=== PATIENT | female | born 1995 | race Caucasian/White ===

== ENCOUNTER 2016-10-21 10:04 | Emergency (ER) | payer MEDICAID, OTHER ==
[~2016-10-21 10:04] MED LIST: IBUP600T26 PO; PRENTAB9 PO
[2016-10-21] MEDS ORDERED: METOCLOPRAMIDE INJ 10MG/2ML VIAL (J2765) As Ordered ONE (10:45)
--- NOTE | 2016-10-21 12:11 | EDDOCDS ---
Physician Documentation [facility] Name: Olya Scott Age: 21 yrs Sex: Female : 1995 Arrival Date: 10/21/2016 Time: 10:04 Bed I3 / M3 Private MD: Edi Elizalde MD Disposition: 10/21/16 11:36 Discharged to Home/Self Care. Impression: related conditions, unspecified, first trimester - nausea and vomiting. - Condition is Stable. - Discharge Instructions: First Trimester of . - Medication Reconciliation form. - Follow up: Rashaad Howard MD; When: Call to arrange an appointment; Reason: Recheck today's complaints, Continuance of care. - Problem is an ongoing problem. - Symptoms have improved. Historical: - Allergies: Levofloxacin; levothyroxine (edema); - Home Meds: 1. Vitamin Oral tab 1 tab once daily 2. Wellbutrin XL 150 mg Oral Tb24 1 tab once daily - PMHx: Hypothyroidism; - PSHx: none; - Social history: Smoking status: Patient states was never smoker of tobacco. No barriers to communication noted, The patient speaks fluent Algerian, Speaks appropriately for age. - Family history: Not pertinent. - : The pt / caregiver states he / she is not on anticoagulants. Home medication list is obtained from the patient. - Exposure Risk Screening:: None identified. 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 8 in. (172.72 cm); Pain 4/10; 11:53 BP 110 / 65; Pulse 78; Resp 18; Temp 99.3(TE); Pulse Ox 98% on R/A; Pain 0/10; dem1 10:08 Body Mass Index 26.15 (78.02 kg, 172.72 cm) elp MDM: 10:33 IV Saline Lock ordered. cc10 10:33 NS 0.9% 1000 ml IV at bolus once ordered. cc10 10:33 Metoclopramide 10 mg IV at 40 mg/hr once over 15 mins ordered. cc10 11:02 Financial registration complete. 11:55 [facility] Payment Agreement was scanned into [employer] and attached to record. lg Administered Medications: 10:51 Drug: NS 0.9% 1000 ml [sodium chloride 0.9 % intravenous solution] Route: IV; Rate: kr3 bolus; Site: right antecubital; 10:51 Drug: Metoclopramide 10 mg [metoclopramide 5 mg/mL injection solution] Route: IV; Rate: kr3 40 mg/hr; Infused Over: 15 mins; Site: right antecubital; 11:36 Follow up: Response: Nausea is decreased; IV Status: Completed infusion kr3 12:08 Follow up: IV Status: Completed infusion jefferson Signatures: Javon Small RN RN Zaki MartínezRN RN Tim Taylor, [place] Raj Murguia, PA-C PA-C cc10 Kisha Maria RN kr3 The chart was reviewed and I authenticate all verbal orders and agree with the evaluation and treatment provided.Attachments: 11:55 [facility] Payment Agreement lg MTDD
--- NOTE | 2016-10-21 12:11 | EDDOCDS ---
Nurse's Notes [facility] Name: Olya Scott Age: 21 yrs Sex: Female : 1995 Arrival Date: 10/21/2016 Time: 10:04 Bed I3 / M3 Private MD: Edi Elizalde MD Diagnosis: related conditions, unspecified, first trimester-nausea and vomiting Presentation: 10/21 10:13 Presenting complaint: Patient states: states 10 weeks IUP - has been vomiting daily. bcj states vomited 27 times since 2330 last night. feels dehydrated. + RUQ abd pain. denies vag bleeding vag discharge. feels dizzy. Adult Sepsis Screening: The patient does not have new or worsening altered mentation. Patient's respiratory rate is less than 22. Systolic blood pressure is greater than 100. Patient has a qSOFA score of 0- Negative Sepsis Screen. Suicide/Homicide risk assessment- the patient denies having any suicidal and/or homicidal ideations and does not present with any other emotional, behavioral or mental health complaints. Status: Patient is not a claims service representative or dependent. Transition of care: patient was not received from another setting of care. 10:13 Acuity: STEPHEN Level 3 bcj 10:13 Method Of Arrival: Walkin/Carried/Asstd bcj Triage Assessment: 10:16 General: Appears in no apparent distress, comfortable, Behavior is cooperative. Pain: bcj Location: right upper quadrant Pain currently is 4 out of 10 on a pain scale. HIV screening NA for this visit Offered previously. 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 Vitamin Oral tab 1 tab once daily 2. Wellbutrin XL 150 mg Oral Tb24 1 tab once daily - PMHx: Hypothyroidism; - PSHx: none; - Social history: Smoking status: Patient states was never smoker of tobacco. No barriers to communication noted, The patient speaks fluent Scottish, Speaks appropriately for age. - Family history: Not pertinent. - : The pt / caregiver states he / she is not on anticoagulants. Home medication list is obtained from the patient. - Exposure Risk Screening:: None identified. Screenin:49 Screening information is obtained from the patient. Fall risk:. Assistance ADL's: jefferson requires no assistance with activities of daily living. Abuse/DV Screen: The patient / caregiver reports he/she is: not in a situation that causes fear, pain or injury. Nutritional screening: No deficits noted. Advance Directives: Currently, there is no health care proxy. There is no active DNR order. There is no living will. There is no Power of Dude Wrangler. Advance directive information has not previously been placed in an [facility] medical record. home support is adequate. Assessment: 10:49 General: Appears in no apparent distress, skin warm and dry color satisfactory. Moist jmk pink oral mucosa. Indicates nausea . presently without vomiting. abdomen is soft and nondistended with bowel sounds present x 4.. GI: Abdomen is non- distended Bowel sounds present X 4 quads. Abd is soft and non tender X 4 quads. 11:36 Reassessment: Patient states feeling better. kr3 12:08 General: Appears nausea resolved, bolus infused. receptive to discharge.. k Vital Signs: 10:08 BP 102 / 67; Pulse 92; Resp 18; Temp 99.0(O); Pulse Ox 100% ; Weight 78.02 kg; Height 5 elp ft. 8 in. (172.72 cm); Pain 4/10; 11:53 BP 110 / 65; Pulse 78; Resp 18; Temp 99.3(TE); Pulse Ox 98% on R/A; Pain 0/10; dem1 10:08 Body Mass Index 26.15 (78.02 kg, 172.72 cm) [facility] Vitals: 10:08 Log In Time: October 21, 2016 at 10:05. [facility] ED Course: 10:08 Patient visited by Sofia Hoyt PCA. elp 10:08 Edi Elizalde is Private Physician. elp 10:08 Patient moved to Waiting elp 10:09 Patient visited by Sofia Hoyt PCA. elp 10:09 Patient moved to Pre RCE elp 10:15 Triage Initiated bcj 10:17 Patient visited by Javon Small RN. bcj 10:26 Patient moved to Triage 1 ct3 10:29 [facility] cc10 10:29 Nestor Viera MD is Attending Physician. cc10 10:29 Patient visited by Raj Murguia PA-C. cc10 10:29 Patient visited by Raj Murguia PA-C. cc10 10:36 Patient moved to I3 / M3 ct3 10:49 The patient / caregiver is instructed regarding the plan of care and ED course. jmk 10:49 Inserted saline lock: 20 gauge in right antecubital area. jmk 11:36 Patient visited by Kisha Maria RN. kr3 11:36 Rashaad Howard MD is Referral Physician. cc10 11:36 Patient has correct armband on for positive identification. Placed in gown. Bed in low kr3 position. Call light in reach. Side rails up X 1. 11:53 Patient visited by Mary Ruth. dem1 11:55 Patient name changed from Olya\S\Roselia\S\Scott\S\ to Olya\S\R\S\Scott. EDMS 11:55 [facility] Payment Agreement was scanned into [employer] and attached to record. lg 12:08 Discontinued lock intact, bleeding controlled, pressure dressing applied, No jmk redness/swelling at site. No procedures done that require assistance. Administered Medications: 10:51 Drug: NS 0.9% 1000 ml [sodium chloride 0.9 % intravenous solution] Route: IV; Rate: kr3 bolus; Site: right antecubital; 10:51 Drug: Metoclopramide 10 mg [metoclopramide 5 mg/mL injection solution] Route: IV; Rate: kr3 40 mg/hr; Infused Over: 15 mins; Site: right antecubital; 11:36 Follow up: Response: Nausea is decreased; IV Status: Completed infusion kr3 12:08 Follow up: IV Status: Completed infusion jmk Order Results: There are currently no results for this order. Outcome: 11:36 No special radiology studies were completed. kr3 11:36 Discharge ordered by Provider. cc10 12:08 Discharge Assessment: Patient awake, alert and oriented x 3. No cognitive and/or jmk functional deficits noted. Patient verbalized understanding of disposition instructions. patient administered narcotics - no. The following High Risk Discharge criteria are identified: None. Discharged to home ambulatory. Condition: good Condition: improved. Discharge instructions given to patient, Instructed on discharge instructions, follow up and referral plans. medication usage, Demonstrated understanding of instructions, medications, Pt was receptive of discharge instructions/ teaching. Property :Personal belongings accompany Pt. 12:10 Patient left the ED. jefferson Signatures: Dispatcher [employer] EDMS Javon Small, RN RN Zaki MartínezRN RN Tim Taylor, Peter Reg lg Kisha MariaRN RN kr3 Jennifer Whiting, LEAD JAVA J2EE DEVELOPER LEAD JAVA J2EE DEVELOPER ct3 Mary Ruth dem1 Sofia Hoyt, LEAD JAVA J2EE DEVELOPER LEAD JAVA J2EE DEVELOPER elp Raj Murguia, PA-C PA-C cc10 MTDD
--- NOTE | 2016-10-23 13:12 | EDDOCDS ---
Physician Documentation [facility] Name: Olya Scott Age: 21 yrs Sex: Female : 1995 Arrival Date: 10/21/2016 Time: 10:04 Bed I3 / M3 Private MD: Edi Elizalde MD Disposition: 10/21/16 11:36 Discharged to Home/Self Care. Impression: related conditions, unspecified, first trimester - nausea and vomiting. - Condition is Stable. - Discharge Instructions: First Trimester of . - Medication Reconciliation form. - Follow up: Rashaad Howard MD; When: Call to arrange an appointment; Reason: Recheck today's complaints, Continuance of care. - Problem is an ongoing problem. - Symptoms have improved. Historical: - Allergies: Levofloxacin; levothyroxine (edema); - Home Meds: 1. Vitamin Oral tab 1 tab once daily 2. Wellbutrin XL 150 mg Oral Tb24 1 tab once daily - PMHx: Hypothyroidism; - PSHx: none; - Social history: Smoking status: Patient states was never smoker of tobacco. No barriers to communication noted, The patient speaks fluent Georgian, Speaks appropriately for age. - Family history: Not pertinent. - : The pt / caregiver states he / she is not on anticoagulants. Home medication list is obtained from the patient. - Exposure Risk Screening:: None identified. 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 8 in. (172.72 cm); Pain 4/10; 11:53 BP 110 / 65; Pulse 78; Resp 18; Temp 99.3(TE); Pulse Ox 98% on R/A; Pain 0/10; dem1 10:08 Body Mass Index 26.15 (78.02 kg, 172.72 cm) elp MDM: 10:33 IV Saline Lock ordered. cc10 10:33 NS 0.9% 1000 ml IV at bolus once ordered. cc10 10:33 Metoclopramide 10 mg IV at 40 mg/hr once over 15 mins ordered. cc10 11:02 Financial registration complete. lg 11:55 [facility] Payment Agreement was scanned into [employer] and attached to record. lg 14:24 T-Sheet-- Draft Copy was scanned into [employer] and attached to record. gb Administered Medications: 10:51 Drug: NS 0.9% 1000 ml [sodium chloride 0.9 % intravenous solution] Route: IV; Rate: kr3 bolus; Site: right antecubital; 10:51 Drug: Metoclopramide 10 mg [metoclopramide 5 mg/mL injection solution] Route: IV; Rate: kr3 40 mg/hr; Infused Over: 15 mins; Site: right antecubital; 11:36 Follow up: Response: Nausea is decreased; IV Status: Completed infusion kr3 12:08 Follow up: IV Status: Completed infusion jefferson Signatures: Javon Small RN RN Zaki MartínezRN RN Regina Bland, Reg Reg gb Tim Mensah, Reg Reg lg Raj Murguia, PA-C PA-C cc10 Kisha Maria RN kr3 The chart was reviewed and I authenticate all verbal orders and agree with the evaluation and treatment provided.Attachments: 11:55 [facility] Payment Agreement lg 14:24 T-Sheet-- Draft Copy gb Chart Complete MTDD
--- NOTE | 2016-10-23 13:12 | EDDOCDS ---
Nurse's Notes [facility] Name: Olya Scott Age: 21 yrs Sex: Female : 1995 Arrival Date: 10/21/2016 Time: 10:04 Bed I3 / M3 Private MD: Edi Elizalde MD Diagnosis: related conditions, unspecified, first trimester-nausea and vomiting Presentation: 10/21 10:13 Presenting complaint: Patient states: states 10 weeks IUP - has been vomiting daily. bcj states vomited 27 times since 2330 last night. feels dehydrated. + RUQ abd pain. denies vag bleeding vag discharge. feels dizzy. Adult Sepsis Screening: The patient does not have new or worsening altered mentation. Patient's respiratory rate is less than 22. Systolic blood pressure is greater than 100. Patient has a qSOFA score of 0- Negative Sepsis Screen. Suicide/Homicide risk assessment- the patient denies having any suicidal and/or homicidal ideations and does not present with any other emotional, behavioral or mental health complaints. Status: Patient is not a food service associate or dependent. Transition of care: patient was not received from another setting of care. 10:13 Acuity: STEPHEN Level 3 bcj 10:13 Method Of Arrival: Walkin/Carried/Asstd bcj Triage Assessment: 10:16 General: Appears in no apparent distress, comfortable, Behavior is cooperative. Pain: bcj Location: right upper quadrant Pain currently is 4 out of 10 on a pain scale. HIV screening NA for this visit Offered previously. 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 Vitamin Oral tab 1 tab once daily 2. Wellbutrin XL 150 mg Oral Tb24 1 tab once daily - PMHx: Hypothyroidism; - PSHx: none; - Social history: Smoking status: Patient states was never smoker of tobacco. No barriers to communication noted, The patient speaks fluent Tajik, Speaks appropriately for age. - Family history: Not pertinent. - : The pt / caregiver states he / she is not on anticoagulants. Home medication list is obtained from the patient. - Exposure Risk Screening:: None identified. Screenin:49 Screening information is obtained from the patient. Fall risk:. Assistance ADL's: jefferson requires no assistance with activities of daily living. Abuse/DV Screen: The patient / caregiver reports he/she is: not in a situation that causes fear, pain or injury. Nutritional screening: No deficits noted. Advance Directives: Currently, there is no health care proxy. There is no active DNR order. There is no living will. There is no Power of Technology Applications Engineer. Advance directive information has not previously been placed in an [facility] medical record. home support is adequate. Assessment: 10:49 General: Appears in no apparent distress, skin warm and dry color satisfactory. Moist jmk pink oral mucosa. Indicates nausea . presently without vomiting. abdomen is soft and nondistended with bowel sounds present x 4.. GI: Abdomen is non- distended Bowel sounds present X 4 quads. Abd is soft and non tender X 4 quads. 11:36 Reassessment: Patient states feeling better. kr3 12:08 General: Appears nausea resolved, bolus infused. receptive to discharge.. k Vital Signs: 10:08 BP 102 / 67; Pulse 92; Resp 18; Temp 99.0(O); Pulse Ox 100% ; Weight 78.02 kg; Height 5 elp ft. 8 in. (172.72 cm); Pain 4/10; 11:53 BP 110 / 65; Pulse 78; Resp 18; Temp 99.3(TE); Pulse Ox 98% on R/A; Pain 0/10; dem1 10:08 Body Mass Index 26.15 (78.02 kg, 172.72 cm) [facility] Vitals: 10:08 Log In Time: October 21, 2016 at 10:05. [facility] ED Course: 10:08 Patient visited by Sofia Hoyt PCA. elp 10:08 Edi Elizalde is Private Physician. elp 10:08 Patient moved to Waiting elp 10:09 Patient visited by Sofia Hoyt PCA. elp 10:09 Patient moved to Pre RCE elp 10:15 Triage Initiated bcj 10:17 Patient visited by Javon Small RN. bcj 10:26 Patient moved to Triage 1 ct3 10:29 Raj [facility]urguia PA-C [facility]. cc10 10:29 Nestor iVera MD is Attending Physician. cc10 10:29 Patient visited by aRj Murguia PA-C. cc10 10:29 Patient visited by Raj Murguia PA-C. cc10 10:36 Patient moved to I3 / M3 ct3 10:49 The patient / caregiver is instructed regarding the plan of care and ED course. jmk 10:49 Inserted saline lock: 20 gauge in right antecubital area. jmk 11:36 Patient visited by Kisha Maria RN. kr3 11:36 Rashaad Howard MD is Referral Physician. cc10 11:36 Patient has correct armband on for positive identification. Placed in gown. Bed in low kr3 position. Call light in reach. Side rails up X 1. 11:53 Patient visited by Mary Ruth. dem1 11:55 Patient name changed from Olya\S\Roselia\S\Scott\S\ to Olya\S\R\S\Scott. EDMS 11:55 [facility] Payment Agreement was scanned into [employer] and attached to record. lg 12:08 Discontinued lock intact, bleeding controlled, pressure dressing applied, No jmk redness/swelling at site. No procedures done that require assistance. 14:24 T-Sheet-- Draft Copy was scanned into [employer] and attached to record. gb Administered Medications: 10:51 Drug: NS 0.9% 1000 ml [sodium chloride 0.9 % intravenous solution] Route: IV; Rate: kr3 bolus; Site: right antecubital; 10:51 Drug: Metoclopramide 10 mg [metoclopramide 5 mg/mL injection solution] Route: IV; Rate: kr3 40 mg/hr; Infused Over: 15 mins; Site: right antecubital; 11:36 Follow up: Response: Nausea is decreased; IV Status: Completed infusion kr3 12:08 Follow up: IV Status: Completed infusion jmk Order Results: There are currently no results for this order. Outcome: 11:36 No special radiology studies were completed. kr3 11:36 Discharge ordered by Provider. cc10 12:08 Discharge Assessment: Patient awake, alert and oriented x 3. No cognitive and/or jmk functional deficits noted. Patient verbalized understanding of disposition instructions. patient administered narcotics - no. The following High Risk Discharge criteria are identified: None. Discharged to home ambulatory. Condition: good Condition: improved. Discharge instructions given to patient, Instructed on discharge instructions, follow up and referral plans. medication usage, Demonstrated understanding of instructions, medications, Pt was receptive of discharge instructions/ teaching. Property :Personal belongings accompany Pt. 12:10 Patient left the ED. jefferson Signatures: Dispatcher [employer] EDMS Javon Small, RN RN Zaki Martínez,RN RN Regina Bland, Reg Reg gb Tim Mensah, Reg Reg lg Kisha Maria,RN RN kr3 Jennifer Whiting, GENERATOR REBUILDER GENERATOR REBUILDER ct3 Mary Ruth dem1 Sofia Hoyt, GENERATOR REBUILDER GENERATOR REBUILDER elp Raj Murguia, SLOAN-C PALilyC cc10 Chart Complete MTDChago
--- NOTE | 2016-10-23 13:12 | EDDOCDS ---
Physician Documentation [facility] Name: Olya Scott Age: 21 yrs Sex: Female : 1995 Arrival Date: 10/21/2016 Time: 10:04 Bed I3 / M3 Private MD: Edi Elizalde MD Disposition: 10/21/16 11:36 Discharged to Home/Self Care. Impression: related conditions, unspecified, first trimester - nausea and vomiting. - Condition is Stable. - Discharge Instructions: First Trimester of . - Medication Reconciliation form. - Follow up: Rashaad Howard MD; When: Call to arrange an appointment; Reason: Recheck today's complaints, Continuance of care. - Problem is an ongoing problem. - Symptoms have improved. Historical: - Allergies: Levofloxacin; levothyroxine (edema); - Home Meds: 1. Vitamin Oral tab 1 tab once daily 2. Wellbutrin XL 150 mg Oral Tb24 1 tab once daily - PMHx: Hypothyroidism; - PSHx: none; - Social history: Smoking status: Patient states was never smoker of tobacco. No barriers to communication noted, The patient speaks fluent Kenyan, Speaks appropriately for age. - Family history: Not pertinent. - : The pt / caregiver states he / she is not on anticoagulants. Home medication list is obtained from the patient. - Exposure Risk Screening:: None identified. 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 8 in. (172.72 cm); Pain 4/10; 11:53 BP 110 / 65; Pulse 78; Resp 18; Temp 99.3(TE); Pulse Ox 98% on R/A; Pain 0/10; dem1 10:08 Body Mass Index 26.15 (78.02 kg, 172.72 cm) elp MDM: 10:33 IV Saline Lock ordered. cc10 10:33 NS 0.9% 1000 ml IV at bolus once ordered. cc10 10:33 Metoclopramide 10 mg IV at 40 mg/hr once over 15 mins ordered. cc10 11:02 Financial registration complete. lg 11:55 [facility] Payment Agreement was scanned into [employer] and attached to record. lg 14:24 T-Sheet-- Draft Copy was scanned into [employer] and attached to record. gb Administered Medications: 10:51 Drug: NS 0.9% 1000 ml [sodium chloride 0.9 % intravenous solution] Route: IV; Rate: kr3 bolus; Site: right antecubital; 10:51 Drug: Metoclopramide 10 mg [metoclopramide 5 mg/mL injection solution] Route: IV; Rate: kr3 40 mg/hr; Infused Over: 15 mins; Site: right antecubital; 11:36 Follow up: Response: Nausea is decreased; IV Status: Completed infusion kr3 12:08 Follow up: IV Status: Completed infusion jefferson Signatures: Javon Small RN RN Zaki MartínezRN RN Regina Bland, Reg Reg gb Tim Mensah, Reg Reg lg Raj Murguia, PA-C PA-C cc10 Kisha Maria RN kr3 The chart was reviewed and I authenticate all verbal orders and agree with the evaluation and treatment provided.Attachments: 11:55 [facility] Payment Agreement lg 14:24 T-Sheet-- Draft Copy gb Chart Complete MTDD
== END 2016-10-21 12:10 | disposition home or self-care (01) ==
LOC: M ED 10:04
DX: O21.9 Vomiting of pregnancy, unspecified (principal); Z3A.10 10 weeks gestation of pregnancy; O99.281 Endocrine, nutritional and metabolic diseases complicating pregnancy, first trimester; E03.9 Hypothyroidism, unspecified; O99.341 Other mental disorders complicating pregnancy, first trimester; F99 Mental disorder, not otherwise specified; Z79.899 Other long term (current) drug therapy; Z88.1 Allergy status to other antibiotic agents; Z88.8 Allergy status to other drugs, medicaments and biological substances
CPT/HCPCS: 96365; 99283; J2765

== ENCOUNTER → 2017-01-04 | Outpatient (CLI) | payer OTHER ==
--- NOTE | 2017-01-04 13:58 | REP ---
OB ULTRASOUND: Real-time sonographic evaluation of the gravid uterus is performed. There is a single living intrauterine gestation with an estimated gestational age 20 weeks 4 days with EDC 05/20/2017. Today's measurements indicate appropriate growth. Biometry and Growth: BPD 51 mm = 21 weeks 4 days, 74th percentile HC 189 mm = 21 weeks 1 day, 66th percentile AC 155 mm = 20 weeks 5 days, 51st percentile FL 32 mm = 20 weeks 0 days, 35th percentile HC/AC ratio 1.22 within normal range. Estimated weight 356 grams, 42nd percentile. SEEN/GROSSLY UNREMARKABLE Lateral ventricles Yes Posterior fossa Yes Upper lip Yes Four-chamber heart Yes LVOT Yes RVOT Yes Stomach Yes Cord insertion Yes Three vessel cord Yes Kidneys Yes Bladder Yes Spine No Cervical length: Closed and measures 3.3 cm in length. heart rate: 153 beats per minute. position: Transverse. Placenta: Anterior and grade 0 with no previa or abruption. Amniotic fluid: Within normal limits. Signed by Laurent Guadalupe MD 01/04/2017 05:39 P
== END ==
LOC: M RAD 11:56
PROVIDERS: ATTEND Obstetrics & Gynecology
DX: Z34.82 Encounter for supervision of other normal pregnancy, second trimester (principal); Z3A.20 20 weeks gestation of pregnancy

== ENCOUNTER → 2017-01-11 | Outpatient (REF) | payer OTHER | LOC: M LAB REF 16:57 | PROVIDERS: ATTEND Obstetrics & Gynecology | DX: Z34.82 Encounter for supervision of other normal pregnancy, second trimester (principal) ==

== ENCOUNTER → 2017-01-19 | Outpatient (CLI) | payer OTHER ==
--- NOTE | 2017-01-20 03:31 | REP ---
Clinical: Anatomical evaluation. Comparison: 01/04/2017 . Findings: Examination demonstrates a single live intrauterine in cephalic presentation. motion is identified by technologist. Placenta is noted anteriorly and grade zero without evidence for placenta previa or abruption. Amniotic fluid volume is normal. Cervix measures 3.5 cm in length and appears closed. Gestational age by LMP 22 weeks 6 days with NOA 05/19/2017 . Gestational age by current measurements 23 weeks 5 day with NOA is 05/13/2017 . FHR equals 144 beats per minute. Estimated weight 599 grams ( 64th percentile). Anatomical assessment demonstrates normal structures including cranium, choroid plexus, cavum, cerebellum/posterior fossa, facial features, lungs, four-chamber heart/ventricular outflow tracts, diaphragm, stomach, cord insertion/three-vessel cord, kidneys/bladder, spine, and extremities. Impression: Single live intrauterine in cephalic presentation demonstrating appropriate interval growth. Anatomical assessment is complete and normal. Nuchal cord cannot be excluded. Signed by Casimiro Quiroz MD 01/20/2017 03:23 A
== END ==
LOC: M RAD 10:00
PROVIDERS: ATTEND Obstetrics & Gynecology
DX: Z34.82 Encounter for supervision of other normal pregnancy, second trimester (principal)

== ENCOUNTER → 2017-02-12 | Outpatient (CLI) | payer OTHER ==
[2017-02-12 11:03] LABS: MEAN CORPUSCULAR HEMOGLOBIN 30.9 pg (27.0-33.0); MEAN CORPUSCULAR HGB CONC 33.4 g/dl (32.0-36.5); MEAN CORPUSCULAR VOLUME 92.4 fl (80.0-96.0); RED CELL DISTRIBUTION WIDTH 13.2 % (11.5-14.5); WHITE BLOOD COUNT 8.6 K/mm3 (4.0-10.0)
== END ==
LOC: M LAB 09:37
PROVIDERS: ATTEND Obstetrics & Gynecology
DX: Z34.83 Encounter for supervision of other normal pregnancy, third trimester (principal)

== ENCOUNTER 2017-03-11 18:55 | Outpatient (CLI) | payer OTHER | END 2017-03-11 20:20 | disposition home or self-care (01) | LOC: M LDO 18:55 | PROVIDERS: ATTEND Advanced Practice Midwife | DX: O47.03 False labor before 37 completed weeks of gestation, third trimester (principal); Z3A.30 30 weeks gestation of pregnancy; O62.0 Primary inadequate contractions ==

== ENCOUNTER → 2017-04-19 | Outpatient (CLI) | payer OTHER ==
[~2017-04-19] MED LIST changes: +BUSP10TA PO; +COLA100C5 PO; +DIBU0.5O TOP; +MILKSUS PO; +MOTR200T44 PO; +PROC2.5C PR; +RANI1TAB6 PO; +TYLE325T5 PO
--- NOTE | 2017-04-19 12:51 | REP ---
Obstetric ultrasound for abnormal nonstress test: There is a single intrauterine gestation in a vertex presentation. The placenta is anterior. There is no placenta previa or abruptio. The placenta demonstrates grade 1 maturity. Subjectively the amniotic fluid volume is normal. The amniotic fluid index is 19.3 (7.8 - 24.9). heart rate is 141 beats per minute. Based on the first ultrasound during this gestation the gestational age is 35 weeks 4 days with an NOA of 05/20/2017. biophysical profile: Breathing 2 Movement 2 Tone 2 A FV 2 Total 05/09 Umbilical artery Doppler assessment: S/D ratio - 2.61 Resistive index - 0.62 Diastolic flow velocity - 18.5 cm/sec. These values are normal. Signed by Laurent Madera MD 04/19/2017 12:42 P
== END ==
LOC: M RAD 11:53
PROVIDERS: ATTEND Advanced Practice Midwife
DX: Z34.83 Encounter for supervision of other normal pregnancy, third trimester (principal); Z3A.35 35 weeks gestation of pregnancy

== ENCOUNTER → 2017-04-26 | Outpatient (REF) | payer OTHER | LOC: M LAB REF 13:01 | PROVIDERS: ATTEND Obstetrics & Gynecology | DX: Z34.83 Encounter for supervision of other normal pregnancy, third trimester (principal); Z3A.00 Weeks of gestation of pregnancy not specified ==

== ENCOUNTER 2017-05-16 14:46 | Inpatient (IN) | payer OTHER ==
[~2017-05-16] VITALS: Ht 172.7 cm; Wt 100.0 kg
[2017-05-16] VITALS (9 sets, daily range): BP systolic 108–130; BP diastolic 56–74
[~2017-05-16 14:46] MED LIST changes: -BUSP10TA PO; -COLA100C5 PO; -DIBU0.5O TOP; -MILKSUS PO; -MOTR200T44 PO; -PROC2.5C PR; -RANI1TAB6 PO; -TYLE325T5 PO
[2017-05-16] MEDS ORDERED: RANI1TAB6 PO (15:33)
[2017-05-16] MEDS ORDERED: BUSP10TA PO (15:33)
[2017-05-16] MEDS ORDERED: LR 1,000 ML IV SCH (16:30)
[2017-05-16] MEDS ORDERED: LACTATED RINGER'S 1000 ML IV STA (16:30)
--- NOTE | 2017-05-16 17:03 | HPE ---
DATE OF ADMISSION: 05/16/2017 CHIEF COMPLAINT: Elective induction of labor. HISTORY OF THE PRESENT ILLNESS: The patient is a 21-year-old 2, para 1-0-0-1 at 39 weeks 4 days gestation with an estimated delivery date of 05/19/2017, by last menstrual period of 08/13/2016, confirmed by first trimester ultrasound of 09/23/2016. She presents for elective induction of labor. The patient denies uterine contractions, leakage of fluid, bleeding or discharge. She is feeling the baby move and states that her last intercourse was last week. LABS: The patient's blood type is B+. She is GBS negative, HIV negative , Rubella immune, VDRL nonreactive. Gonorrhea and Chlamydia negative. Hepatitis B antigen negative, hepatitis C nonreactive. Diabetes screen was 120. Corwith showed low probability, male fetus. Prepregnancy weight was 162 pounds. Her blood pressures have been ranging from 110-136 systolic over 60-92 diastolic in the office. Obstetrical ultrasound from 01/04/2017 showed an anterior placenta, no abnormalities. PAST OBSTETRICAL HISTORY: In 2013, she delivered a male at 40 weeks 5 days gestation via normal spontaneous vaginal delivery that weighed 9 pounds; complicated by a two-vessel cord. PAST MEDICAL HISTORY: 1. depression. 2. History of human papillomavirus (HPV). 3. Abnormal Pap smears in 2011 and 2013, colposcopies were normal. MEDICATIONS: - ranitidine 150 mg twice a day - buspirone 5 mg daily - vitamins PAST SURGICAL HISTORY: None. ALLERGIES: LEVAQUIN (gives the patient hallucinations). SOCIAL HISTORY: The patient is legally , denies tobacco, alcohol or drug use. EXAM: VITAL SIGNS: Heart rate is 86, respiratory rate is 18, temperature is 98.7, blood pressure is 130/74. ABDOMEN: Gravid. SVE: (05/11/2017, done in office) 2-3 cm/50%/-3 station. FHR: 135 beats per minute, moderate variability, accelerations, no decelerations, category 1 tracing. TOCO: No contractions. ASSESSMENT AND PLAN: 1. This is a 21-year-old 2, para 1 at 39 weeks 4 days gestation, presenting for elective induction of labor. Admit to labor and delivery with routine labs and orders. 2. The patient is GBS negative, no antibiotics required. 3. Anticipate induction of labor with spontaneous vaginal delivery. My preceptor for this patient encounter was Dr. Jackson Gómez. The preceptor was physically present in the building during the encounter and was fully available. As needed, all aspects of the patient interview, examination, medical decision making process, and medical care plan development were reviewed and approved by the preceptor. The preceptor is aware and concurs with the plan as stated in the body of this note and will attest to such by his/her cosignature. MEE
[2017-05-16 17:34] LABS: MEAN CORPUSCULAR HEMOGLOBIN 28.2 pg (27.0-33.0); MEAN CORPUSCULAR HGB CONC 34.4 g/dl (32.0-36.5); MEAN CORPUSCULAR VOLUME 82.2 fl (80.0-96.0); RED CELL DISTRIBUTION WIDTH 15.5 % (11.5-14.5); WHITE BLOOD COUNT 8.9 K/mm3 (4.0-10.0)
[2017-05-16] MEDS ORDERED: OXYTOCIN 30 UNITS IN 0.9% NaCl 500ML IV BAG (J2590) As Ordered ONE (21:42)
[2017-05-16] MEDS ORDERED: OXYTOCIN DRIP 30 UNITS in APPROPRIATE DILUENT 1 EA IV SCH (21:45)
[2017-05-17] VITALS (57 sets, daily range): BP systolic 82–133; BP diastolic 48–82
[2017-05-17] MEDS ORDERED: FENTANYL 2MCG/ML ROPIVACAINE 0.2% IN 0.9% NACL 200ML IVBAG As Ordered ONE (02:47)
[2017-05-17] MEDS ORDERED: ePHEDrine SULFATE 25 MG/5 ML(5MG/ML) SYRINGE IV PRN (07:30)
[2017-05-17] MEDS ORDERED: ONDANSETRON 4MG/2ML VIAL (J2405) IV PRN (07:30)
[2017-05-17] MEDS ORDERED: NALOXONE INJ 0.4 MG/1 ML VIAL (J2310) IV PRN (07:30)
[2017-05-17] MEDS ORDERED: REFRIGERATOR IV KEYS XX PRN (07:30)
[2017-05-17] MEDS ORDERED: diphenhydrAMINE INJ 50MG/ML VIAL (J1200) IV PRN (07:30)
[2017-05-17] MEDS ORDERED: LACTATED RINGER'S 1000 ML IV PRN (07:30)
[2017-05-17] MEDS ORDERED: EPIDURAL COMMENT XX SCH (07:30)
[2017-05-17] MEDS ORDERED: FENTANYL/ROPIVACAINE/NACL BAG 200 ML EPIDURAL SCH (07:30)
[2017-05-17] MEDS ORDERED: EPIDURAL/PCA KEYS XX PRN (07:30)
[2017-05-17] MEDS ORDERED: OXYTOCIN DRIP 30 UNITS in APPROPRIATE DILUENT 1 EA IV SCH (14:36)
[2017-05-17] MEDS ORDERED: MEASLES,MUMPS,RUBELLA VACCINE INJ (MMR-II) (90707) SC SCH (14:45)
[2017-05-17] MEDS ORDERED: IBUPROFEN 800 MG TAB PO PRN (14:45)
[2017-05-17] MEDS ORDERED: RHOGAM 300 MCG (1500 IU) INJ (J2790) IM SCH (14:45)
[2017-05-17] MEDS ORDERED: DOCUSATE SODIUM 100 MG CAP PO PRN (14:45)
[2017-05-17] MEDS ORDERED: MOM 30ML SUSPENSION UDC PO PRN (14:45)
[2017-05-17] MEDS ORDERED: ACETAMINOPHEN 500 MG TAB PO PRN (14:45)
[2017-05-17] MEDS ORDERED: ANUSOL HC CREAM 30GM TOP PRN (14:45)
[2017-05-17] MEDS ORDERED: DIBUCAINE 1% OINTMENT 30GM TOP PRN (14:45)
[2017-05-17] MEDS ORDERED: METHYLERGONOVINE MALEATE 0.2 MG TAB PO PRN (14:45)
[2017-05-18 06:40] VITALS: BP 120/64
[2017-05-18] MEDS ORDERED: PRENATAL VITAMINS CHEWABLE TABLET PO SCH (09:00)
--- NOTE | 2017-05-18 13:16 | DN ---
DATE: 05/17/2017 TIME OF : 1413 hours. GENDER: Male. SCORE: 9 and 9. WEIGHT: 8 pounds 9 ounces or 3086 grams. ANESTHESIA: Epidural. LACERATIONS: None. ESTIMATED BLOOD LOSS: 300 mL. COUNTS: 5 laparotomy sponges accounted for prior to and after delivery. DELIVERY NOTE: On 05/17/2017, at 1413 hours, Ms. Scott, a 21-year-old, 2, now para 2, had a spontaneous vaginal delivery of a liveborn male infant, score 9 and 9. Weight was 8 pounds 9 ounces or 3086 grams. Head was delivered occiput anterior (OA) over intact peritoneum, followed by delivery of anterior and posterior shoulders and corpus. Cord was clamped times two. It was cut by the father of the baby under my direction. Infant was then handed to mom with a good cry. Cord blood was obtained. Placenta was drained and delivered grossly intact. A premixed bag of 500 mL of normal saline with 30 units of Pitocin was bolused along with uterine massage until uterus was firm. On inspection, the cervix, vagina and perineum was grossly intact. Mom and baby recovered in stable condition.
[2017-05-18] MEDS ORDERED: DIBU0.5O TOP (17:17)
[2017-05-18] MEDS ORDERED: TYLE325T5 PO (17:17)
[2017-05-18] MEDS ORDERED: MILKSUS PO (17:17)
[2017-05-18] MEDS ORDERED: MOTR200T44 PO (17:17)
[2017-05-18] MEDS ORDERED: PROC2.5C PR (17:17)
[2017-05-18] MEDS ORDERED: COLA100C5 PO (17:17)
== END 2017-05-18 18:00 | disposition home or self-care (01) | DRG 560 ==
LOC: M LDI 14:46 → M OBS 05-17 17:53
PROVIDERS: ADMIT Obstetrics & Gynecology; ATTEND Obstetrics & Gynecology
PROC: 10E0XZZ Delivery of Products of Conception, External Approach (ICD-10-PCS; principal; 2017-05-17)
DX: O80 Encounter for full-term uncomplicated delivery (principal); Z37.0 Single live birth; Z3A.39 39 weeks gestation of pregnancy

== ENCOUNTER 2017-08-28 11:46 | Emergency (ER) | payer MEDICAID, OTHER ==
[~2017-08-28] VITALS: Ht 172.7 cm; Wt 81.8 kg
[~2017-08-28 11:46] MED LIST changes: +BUSP10TA PO; +COLA100C5 PO; +DIBU0.5O TOP; +MILKSUS PO; +MOTR200T44 PO; +PROC2.5C PR; +RANI1TAB6 PO; +TYLE325T5 PO
[2017-08-28] MEDS ORDERED: ATIV1TAB7 PO (12:18)
[2017-08-28] MEDS ORDERED: EFFE75CA75 PO (12:18)
[2017-08-28] MEDS ORDERED: FLON1SPR (14:43)
[2017-08-28 14:54] VITALS: BP 119/79
== END 2017-08-28 14:56 | disposition home or self-care (01) ==
LOC: M ED 11:46
DX: J01.90 Acute sinusitis, unspecified (principal); T43.215A Adverse effect of selective serotonin and norepinephrine reuptake inhibitors, initial encounter; Y92.9 Unspecified place or not applicable; Y93.9 Activity, unspecified; Z79.899 Other long term (current) drug therapy; Z88.8 Allergy status to other drugs, medicaments and biological substances

== ENCOUNTER → 2017-09-05 | Outpatient (REF) | payer MEDICAID, OTHER, SELFPAY ==
[~2017-09-05] MED LIST changes: +ATIV1TAB7 PO; +EFFE75CA75 PO; +FLON1SPR
[2017-09-05 13:56] LABS: BASO % 0.5 % (0.0-1.0); EOS # 0.2 10^3/uL (0.0-0.50); EOS % 2.8 % (0.0-3.0); IMMATURE GRANULOCYTE % 0.2 % (0-0); LYMPH % 23.7 % (24.0-44.0); MEAN CORPUSCULAR HEMOGLOBIN 27.7 pg (27.0-33.0); MEAN CORPUSCULAR HGB CONC 32.6 g/dl (32.0-36.5); MONO # 0.8 10^3/uL (0.0-0.8); MONO % 9.3 % (0.0-5.0); NEUTROPHILS # 5.4 10^3/uL (1.8-7.7); NEUTROPHILS % 63.5 % (36.0-66.0); PLATELET COUNT, AUTOMATED 329 10^3/uL (150-450); WHITE BLOOD COUNT 8.5 10^3/uL (4.0-10.0)
[2017-09-05 14:14] LABS: ALBUMIN 3.7 GM/DL (3.2-5.2); ALKALINE PHOSPHATASE 126 U/L (45-117); ALT/SGPT 70 U/L (12-78); ANION GAP 10 MEQ/L (8-16); AST/SGOT 32 U/L (7-37); BILIRUBIN,TOTAL 0.3 MG/DL (0.2-1.0); BLOOD UREA NITROGEN 10 MG/DL (7-18); CALCIUM LEVEL 8.9 MG/DL (8.5-10.1); CARBON DIOXIDE LEVEL 26 MEQ/L (21-32); CHLORIDE LEVEL 104 MEQ/L (98-107); CREATININE FOR GFR 0.78 MG/DL (0.55-1.02); GLOMERULAR FILTRATION RATE > 60.0 (>60); GLUCOSE, FASTING 93 MG/DL (70-105); POTASSIUM SERUM 3.7 MEQ/L (3.5-5.1); SODIUM LEVEL 140 MEQ/L (136-145); TOTAL PROTEIN 7.4 GM/DL (6.4-8.2)
[2017-09-05 14:32] LABS: ERYTHROCYTE SEDIMENTATION RATE 38 mm/hr (0-20)
== END ==
LOC: M LABDRAW1 10:42
PROVIDERS: ATTEND Psychiatry & Neurology Neurology
DX: R05 Cough (principal)

== ENCOUNTER 2017-10-10 09:49 | Emergency (ER) | payer OTHER, SELFPAY, MEDICAID ==
[2017-10-10 11:30] LABS: ANION GAP 6 MEQ/L (8-16); BLOOD UREA NITROGEN 14 MG/DL (7-18); CALCIUM LEVEL 8.9 MG/DL (8.5-10.1); CARBON DIOXIDE LEVEL 28 MEQ/L (21-32); CHLORIDE LEVEL 107 MEQ/L (98-107); CREATININE FOR GFR 0.66 MG/DL (0.55-1.02); GLOMERULAR FILTRATION RATE > 60.0 (>60); GLUCOSE, FASTING 85 MG/DL (70-105); POTASSIUM SERUM 4.1 MEQ/L (3.5-5.1); SODIUM LEVEL 141 MEQ/L (136-145)
[2017-10-10] MEDS ORDERED: ISOVUE-370 76% 100ML VIAL (Q9967) As Ordered (11:33)
== END 2017-10-10 12:34 | disposition home or self-care (01) ==
LOC: M ED 09:49
DX: R07.89 Other chest pain (principal); R91.1 Solitary pulmonary nodule; F53 Mental and behavioral disorders associated with the puerperium, not elsewhere classified; Z79.899 Other long term (current) drug therapy; Z88.1 Allergy status to other antibiotic agents; Z82.49 Family history of ischemic heart disease and other diseases of the circulatory system
CPT/HCPCS: Q9967

== ENCOUNTER → 2017-10-13 | Outpatient (REF) | payer OTHER | LOC: M LAB REF 18:11 | DX: Z12.4 Encounter for screening for malignant neoplasm of cervix (principal) | CPT/HCPCS: G0123 ==

== ENCOUNTER → 2017-11-08 | Outpatient (REF) | payer OTHER ==
[2017-11-08 14:47] LABS: INFLUENZA A AMPLIFICATION NEGATIVE (NEGATIVE); INFLUENZA B AMPLIFICATION NEGATIVE (NEGATIVE); RSV AMPLIFICATION NEGATIVE (NEGATIVE)
[2017-11-08 15:30] LABS: APPEARANCE, URINE HAZY (CLEAR); BACTERIA, URINE AUTO NEGATIVE (NEGATIVE); BILIRUBIN, URINE AUTO NEGATIVE (NEGATIVE); BLOOD, URINE BLOOD NEGATIVE (NEGATIVE); COLOR, URINE YELLOW (YELLOW); GLUCOSE, URINE (UA) AUTO NEGATIVE (NEGATIVE); KETONE, URINE AUTO NEGATIVE (NEGATIVE); LEUKOCYTE ESTERASE, URINE AUTO TRACE (NEGATIVE); NITRITE, URINE AUTO NEGATIVE (NEGATIVE); PROTEIN, URINE AUTO NEGATIVE (NEGATIVE); RBC, URINE AUTO 1 /HPF (0-3); SPECIFIC GRAVITY URINE AUTO 1.023 (1.002-1.035); SQUAMOUS EPITHELIAL CELL UR AU 4 /HPF (0-6); UROBILINOGEN, URINE AUTO 0.2 mg/dL (0.0-2.0); WBC, URINE AUTO 10 /HPF (0-3)
== END ==
LOC: M LAB REF 13:30
DX: J02.9 Acute pharyngitis, unspecified (principal); J11.1 Influenza due to unidentified influenza virus with other respiratory manifestations

== ENCOUNTER → 2017-12-07 | Outpatient (CLI) | payer OTHER ==
[2017-12-07 14:15] LABS: BASO # 0.1 10^3/uL (0.0-0.2); BASO % 0.5 % (0.0-1.0); EOS # 0.3 10^3/uL (0.0-0.50); EOS % 2.9 % (0.0-3.0); HEMATOCRIT 42.3 % (36.0-47.0); HEMOGLOBIN 14.1 g/dl (12.0-16.0); IMMATURE GRANULOCYTE % 0.4 % (0-3.0); LYMPH # 2.6 10^3/uL (1.5-6.5); LYMPH % 25.6 % (24.0-44.0); MEAN CORPUSCULAR HEMOGLOBIN 28.1 pg (27.0-33.0); MEAN CORPUSCULAR HGB CONC 33.3 g/dl (32.0-36.5); MEAN CORPUSCULAR VOLUME 84.4 fl (80.0-96.0); MONO # 0.6 10^3/uL (0.0-0.8); MONO % 5.7 % (0.0-5.0); NEUTROPHILS # 6.7 10^3/uL (1.8-7.7); NEUTROPHILS % 64.9 % (36.0-66.0); PLATELET COUNT, AUTOMATED 371 10^3/uL (150-450); RED BLOOD COUNT 5.01 10^6/uL (4.00-5.40); RED CELL DISTRIBUTION WIDTH 13.3 % (11.5-14.5); WHITE BLOOD COUNT 10.3 10^3/uL (4.0-10.0)
[2017-12-07 14:54] LABS: ALBUMIN 3.9 GM/DL (3.2-5.2); ALKALINE PHOSPHATASE 157 U/L (45-117); ALT/SGPT 32 U/L (12-78); AMYLASE 50 U/L (25-115); ANION GAP 10 MEQ/L (8-16); AST/SGOT 23 U/L (7-37); BILIRUBIN,TOTAL 0.3 MG/DL (0.2-1.0); BLOOD UREA NITROGEN 15 MG/DL (7-18); CALCIUM LEVEL 9.4 MG/DL (8.5-10.1); CARBON DIOXIDE LEVEL 25 MEQ/L (21-32); CHLORIDE LEVEL 106 MEQ/L (98-107); CREATININE FOR GFR 0.81 MG/DL (0.55-1.30); FREE T4 0.75 NG/DL (0.76-1.46); GLOMERULAR FILTRATION RATE > 60.0 (>60); GLUCOSE, FASTING 85 MG/DL (70-100); LIPASE 211 U/L (73-393); POTASSIUM SERUM 4.7 MEQ/L (3.5-5.1); SODIUM LEVEL 141 MEQ/L (136-145); TOTAL PROTEIN 7.8 GM/DL (6.4-8.2)
[2017-12-08 12:13] LABS: THYROID PEROXIDASE ANTIBODY < 28.0 U/ML (<60.0)
[2017-12-08 12:14] LABS: THYROGLOBULIN ANTIBODY 58.7 U/ML (<60.0)
== END ==
LOC: M SMT 10:42
DX: R63.5 Abnormal weight gain (principal); R10.11 Right upper quadrant pain

== ENCOUNTER → 2017-12-07 | Outpatient (REF) | payer OTHER | LOC: M LAB REF 16:59 | DX: R30.0 Dysuria (principal) | CPT/HCPCS: 87086 ==

== ENCOUNTER → 2017-12-20 | Outpatient (CLI) | payer OTHER ==
[2017-12-20 14:24] LABS: THYROGLOBULIN ANTIBODY 60.1 U/ML (<60.0); THYROID PEROXIDASE ANTIBODY < 28.0 U/ML (<60.0)
[2017-12-20 14:26] LABS: FREE T3 2.9 PG/ML (2.2-4.0)
== END ==
LOC: M WUC 11:24
DX: F43.10 Post-traumatic stress disorder, unspecified (principal); E55.9 Vitamin D deficiency, unspecified

== ENCOUNTER → 2018-01-18 | Outpatient (CLI) | payer OTHER ==
[2018-01-18 09:40] LABS: FREE T3 2.8 PG/ML (2.2-4.0); FREE T4 0.74 NG/DL (0.76-1.46)
[2018-01-19 08:52] LABS: CORTISOL AM 19.4 UG/DL (4.3-22.4)
[2018-01-19 08:54] LABS: TOTAL 25(OH) VITAMIN D 24.5 NG/ML (30.0-100.0)
[2018-01-19 10:01] LABS: PROGESTERONE 0.4 NG/ML
[2018-01-19 10:01] LABS: LUTEINIZING HORMONE 9.8 mIU/mL
[2018-01-19 10:02] LABS: FOLLICLE STIMULATING HORMONE 5.7 mIU/mL
[2018-01-19 14:19] LABS: INSULIN LEVEL 166.2 uIU/mL (2.6-24.9)
[2018-01-22 14:12] LABS: DEHYDROEPIANDROSTERONE UNCONJ 500 ng/dL (31-701); ESTROGENS TOTAL 108 pg/mL (.); TESTOSTERONE FREE (DIRECT) 3.6 pg/mL (0.0-4.2)
== END ==
LOC: M WUC 08:07
DX: F43.10 Post-traumatic stress disorder, unspecified (principal); E66.9 Obesity, unspecified; L70.9 Acne, unspecified; L90.6 Striae atrophicae; E55.9 Vitamin D deficiency, unspecified; R53.83 Other fatigue
CPT/HCPCS: 83001

== ENCOUNTER → 2018-01-24 | Outpatient (CLI) | payer OTHER ==
[2018-01-24 12:00] LABS: CORTISOL AM 0.7 UG/DL (4.3-22.4)
== END ==
LOC: M WUC 08:14
DX: R53.83 Other fatigue (principal); L90.6 Striae atrophicae; L70.9 Acne, unspecified; E66.9 Obesity, unspecified
CPT/HCPCS: 82533

== ENCOUNTER → 2018-02-07 | Outpatient (CLI) | payer OTHER ==
[2018-02-07 10:48] LABS: HEMATOCRIT 39.9 % (36.0-47.0)
[2018-02-07 11:26] LABS: VITAMIN B12 LEVEL 715 PG/ML (247-911)
[2018-02-07 11:26] LABS: RHEUMATOID FACTOR QUANT < 10.0 IU/ML (<15.0)
[2018-02-07 11:31] LABS: FREE T3 3.5 PG/ML (2.2-4.0); FREE T4 0.79 NG/DL (0.76-1.46)
[2018-02-07 11:31] LABS: CALCIUM LEVEL 8.9 MG/DL (8.5-10.1)
[2018-02-07 12:57] LABS: ESTIMATED AVERAGE GLUCOSE 97 MG/DL (60-110)
[2018-02-09 10:52] LABS: PRETREATED FOLATE FOR RBCFOL 10.2 NG/ML; RBC FOLATE 536.8 NG/ML (280-791)
[2018-02-14 00:07] LABS: EBV AB TO NUCLEAR ANTIGEN 33.3 U/mL (0.0-17.9); EBV VIRAL CAPSID AG IgG 53.8 U/mL (0.0-17.9); EBV VIRAL CAPSID AG IgM <36.0 U/mL (0.0-35.9); INSULIN LEVEL 87.2 uIU/mL (2.6-24.9); Lyme Disease IgG/IgM Antibodie <0.91 ISR (0.00-0.90); Lyme Disease IgM Ab Quantitati <0.80 index (0.00-0.79); MAGNESIUM RBC LEVEL 5.2 mg/dL (4.2-6.8); METHYLMALONIC ACID 165 nmol/L (0-378)
== END ==
LOC: M WUC 09:00
DX: F43.10 Post-traumatic stress disorder, unspecified (principal); E66.9 Obesity, unspecified; L70.9 Acne, unspecified; E55.9 Vitamin D deficiency, unspecified
CPT/HCPCS: 82310

== ENCOUNTER → 2018-03-26 | Outpatient (CLI) | payer OTHER | LOC: M SLEEP HO 14:27 | DX: G47.33 Obstructive sleep apnea (adult) (pediatric) (principal) | CPT/HCPCS: G0399 ==

== ENCOUNTER → 2018-03-28 | Outpatient (CLI) | payer OTHER ==
[~2018-03-28] MED LIST changes: -ATIV1TAB7 PO; -BUSP10TA PO; -COLA100C5 PO; -DIBU0.5O TOP; -EFFE75CA75 PO; -FLON1SPR; +GASTROGRAFIN SOLUTION 30ML (Q9963) As Ordered; -IBUP600T26 PO; +ISOVUE-370 76% 100ML VIAL (Q9967) As Ordered; -MILKSUS PO; -MOTR200T44 PO; -PRENTAB9 PO; -PROC2.5C PR; -RANI1TAB6 PO; -TYLE325T5 PO
== END ==
LOC: M RAD 16:01
DX: R91.1 Solitary pulmonary nodule (principal); E16.1 Other hypoglycemia
CPT/HCPCS: Q9963

== ENCOUNTER → 2018-04-18 | Outpatient (REF) | payer OTHER | LOC: M LAB REF 17:19 | DX: R30.0 Dysuria (principal) ==

== ENCOUNTER → 2018-07-09 | Outpatient (CLI) | payer OTHER | LOC: M SLEEP 19:52 | DX: G47.33 Obstructive sleep apnea (adult) (pediatric) (principal) | CPT/HCPCS: 95810 ==

== ENCOUNTER → 2018-07-19 | Outpatient (CLI) | payer OTHER ==
[2018-07-19 11:18] LABS: HCG, SERUM QUANTITATIVE 282 MIU/ML
== END ==
LOC: M LAB 10:03
DX: Z36.89 Encounter for other specified antenatal screening (principal); Z3A.00 Weeks of gestation of pregnancy not specified
CPT/HCPCS: 84702

== ENCOUNTER → 2018-07-21 | Outpatient (CLI) | payer OTHER ==
[2018-07-21 12:40] LABS: HCG, SERUM QUANTITATIVE 783 MIU/ML
== END ==
LOC: M LAB 11:24
DX: Z32.01 Encounter for pregnancy test, result positive (principal); Z3A.00 Weeks of gestation of pregnancy not specified
CPT/HCPCS: 84702

== ENCOUNTER → 2018-07-27 | Outpatient (CLI) | payer OTHER | LOC: M RAD 07:37 | DX: Z34.81 Encounter for supervision of other normal pregnancy, first trimester (principal) ==

== ENCOUNTER → 2018-08-03 | Outpatient (CLI) | payer OTHER | LOC: M SMT 09:40 | DX: O9A.211 Injury, poisoning and certain other consequences of external causes complicating pregnancy, first trimester (principal); T83.32XA Displacement of intrauterine contraceptive device, initial encounter; O34.81 Maternal care for other abnormalities of pelvic organs, first trimester; N83.201 Unspecified ovarian cyst, right side; Z3A.01 Less than 8 weeks gestation of pregnancy; Y83.1 Surgical operation with implant of artificial internal device as the cause of abnormal reaction of the patient, or of later complication, without mention of misadventure at the time of the procedure | CPT/HCPCS: 76817 ==

== ENCOUNTER → 2018-09-03 | Outpatient (CLI) | payer OTHER ==
[2018-09-03 14:53] LABS: FREE THYROXINE INDEX 2.9 % (1.3-4.8); HCG, SERUM QUANTITATIVE 46748 MIU/ML; RUBELLA IgG QUALITATIVE IMMUNE (IMMUNE); T UPTAKE 23 % (30-39); THYROXINE (T4) 12.5 UG/DL (4.5-12.0)
[2018-09-03 14:53] LABS: HEPATITIS B SURFACE ANTIGEN NEGATIVE (NEGATIVE)
[2018-09-03 17:15] LABS: HEMATOCRIT 39.3 % (36.0-47.0); HEMOGLOBIN 12.8 g/dl (12.0-15.5); MEAN CORPUSCULAR HEMOGLOBIN 27.2 pg (27.0-33.0); MEAN CORPUSCULAR HGB CONC 32.6 g/dl (32.0-36.5); MEAN CORPUSCULAR VOLUME 83.6 fl (80.0-96.0); PLATELET COUNT, AUTOMATED 333 10^3/uL (150-450); RED CELL DISTRIBUTION WIDTH 14.1 % (11.5-14.5)
== END ==
LOC: M WUC 11:12
DX: Z34.80 Encounter for supervision of other normal pregnancy, unspecified trimester (principal)
CPT/HCPCS: 84443

== ENCOUNTER → 2018-09-09 | Outpatient (CLI) | payer OTHER ==
[2018-09-09 18:08] LABS: FREE T3 3.4 PG/ML (2.2-4.0)
[2018-09-10 10:35] LABS: TOTAL 25(OH) VITAMIN D 14.1 NG/ML (30.0-100.0)
== END ==
LOC: M WUC 14:05
DX: F43.10 Post-traumatic stress disorder, unspecified (principal); E56.9 Vitamin deficiency, unspecified; E03.9 Hypothyroidism, unspecified
CPT/HCPCS: 82306

== ENCOUNTER → 2018-10-11 | Outpatient (CLI) | payer OTHER ==
[~2018-10-11] MED LIST changes: +ATIV1TAB7 PO; +BUSP10TA PO; +COLA100C5 PO; +DIBU0.5O TOP; +EFFE75CA2 PO; +FLON1SPR; -GASTROGRAFIN SOLUTION 30ML (Q9963) As Ordered; +IBUP600T26 PO; -ISOVUE-370 76% 100ML VIAL (Q9967) As Ordered; +MILK120011 PO; +MOTR200T44 PO; +PRENTAB9 PO; +PROC2.5C PR; +RANI1TAB6 PO; +TYLE325T5 PO; +ZOLO100T PO
[2018-10-11 12:07] LABS: ALT/SGPT 18 U/L (12-78); CREATININE FOR GFR 0.65 MG/DL (0.55-1.30); GLOMERULAR FILTRATION RATE > 60.0 (>60); URIC ACID 3.7 MG/DL (2.6-6.0)
[2018-10-11 12:08] LABS: HEMATOCRIT 38.7 % (36.0-47.0); HEMOGLOBIN 12.9 g/dl (12.0-15.5); MEAN CORPUSCULAR HEMOGLOBIN 28.3 pg (27.0-33.0); MEAN CORPUSCULAR HGB CONC 33.3 g/dl (32.0-36.5); MEAN CORPUSCULAR VOLUME 84.9 fl (80.0-96.0); PLATELET COUNT, AUTOMATED 340 10^3/uL (150-450); RED BLOOD COUNT 4.56 10^6/uL (4.00-5.40); WHITE BLOOD COUNT 10.8 10^3/uL (4.0-10.0)
== END ==
LOC: M WUC 09:43
PROVIDERS: ATTEND Advanced Practice Midwife
DX: O14.02 Mild to moderate pre-eclampsia, second trimester (principal)

== ENCOUNTER → 2018-12-03 | Outpatient (CLI) | payer OTHER ==
[2018-12-03 10:40] LABS: HEMATOCRIT 37.5 % (36.0-47.0)
[2018-12-03 11:02] LABS: FREE T3 3.1 PG/ML (2.2-4.0); FREE T4 0.74 NG/DL (0.76-1.46); IRON (FE) 48 UG/DL (50-170); PERCENT SATURATION 11.9 % (13.2-45.0); THYROID STIMULATING HORMONE 0.512 uIU/ML (0.358-3.740); TOTAL IRON BINDING CAPACITY 404 UG/DL (250-450)
[2018-12-03 11:04] LABS: THYROID PEROXIDASE ANTIBODY < 28.0 U/ML (<60.0)
[2018-12-03 11:05] LABS: THYROGLOBULIN ANTIBODY 39.4 U/ML (<60.0); VITAMIN B12 LEVEL 451 PG/ML (247-911)
[2018-12-08 00:06] LABS: Methylmalonic Acid 149 nmol/L (0-378)
== END ==
LOC: M WUC 09:23
PROVIDERS: ATTEND Nurse Practitioner Pediatrics
DX: F43.10 Post-traumatic stress disorder, unspecified (principal); E66.9 Obesity, unspecified; E03.9 Hypothyroidism, unspecified; E55.9 Vitamin D deficiency, unspecified

== ENCOUNTER → 2019-04-13 | Outpatient (CLI) | payer OTHER ==
[~2019-04-13] MED LIST changes: +MAGN200T PO; +MAGN400C PO; +RANI-397 PO; -RANI1TAB6 PO; +THYR15TA PO; +ZOLO50TA PO; +[UNRECOGNIZED DRUG - OTHER] PO
[2019-04-13 19:01] LABS: C REACTIVE PROTEIN QUANTITATIV 2.27 MG/DL (0.00-0.30); FREE T3 3.5 PG/ML (2.2-4.0); FREE T4 0.83 NG/DL (0.76-1.46); PERCENT SATURATION 12.4 % (13.2-45.0)
[2019-04-15 11:21] LABS: THYROID PEROXIDASE ANTIBODY 32.7 U/ML (<60.0)
[2019-04-15 11:22] LABS: THYROGLOBULIN ANTIBODY 28.5 U/ML (<60.0)
== END ==
LOC: M WUC 14:32
PROVIDERS: ATTEND Nurse Practitioner Pediatrics
DX: F43.10 Post-traumatic stress disorder, unspecified (principal); F41.0 Panic disorder [episodic paroxysmal anxiety]; D50.9 Iron deficiency anemia, unspecified; E55.9 Vitamin D deficiency, unspecified; E03.9 Hypothyroidism, unspecified

== ENCOUNTER → 2019-06-14 | Outpatient (CLI) | payer OTHER ==
[~2019-06-14] MED LIST changes: +RANI-356 PO; -RANI-397 PO
[2019-06-14 13:08] LABS: BASO # 0.1 10^3/uL (0.0-0.2); BASO % 0.4 % (0.0-1.0); EOS # 0.3 10^3/uL (0.0-0.5); EOS % 2.9 % (0.0-3.0); HEMATOCRIT 42.3 % (36.0-47.0); HEMOGLOBIN 13.7 g/dl (12.0-15.5); LYMPH # 3.5 10^3/uL (1.5-5.0); LYMPH % 30.4 % (24.0-44.0); MEAN CORPUSCULAR HEMOGLOBIN 26.9 pg (27.0-33.0); MEAN CORPUSCULAR HGB CONC 32.4 g/dl (32.0-36.5); MEAN CORPUSCULAR VOLUME 83.1 fl (80.0-96.0); MONO # 0.7 10^3/uL (0.0-0.8); MONO % 5.8 % (0.0-5.0); NEUTROPHILS % 60.2 % (36.0-66.0); PLATELET COUNT, AUTOMATED 430 10^3/uL (150-450); RED BLOOD COUNT 5.09 10^6/uL (4.00-5.40); WHITE BLOOD COUNT 11.6 10^3/uL (4.0-10.0)
[2019-06-14 13:54] LABS: ALBUMIN 3.6 GM/DL (3.2-5.2); ALT/SGPT 89 U/L (12-78); BILIRUBIN,TOTAL 0.3 MG/DL (0.2-1.0); BLOOD UREA NITROGEN 10 MG/DL (7-18); CALCIUM LEVEL 9.8 MG/DL (8.5-10.1); CARBON DIOXIDE LEVEL 24 MEQ/L (21-32); CHLORIDE LEVEL 107 MEQ/L (98-107); CHOLESTEROL LEVEL 204 MG/DL (<200); CHOLESTEROL RISK RATIO 5.368 (<5); CREATININE FOR GFR 0.77 MG/DL (0.55-1.30); FREE T3 4.8 PG/ML (2.2-4.0); FREE T4 0.81 NG/DL (0.76-1.46); GLOMERULAR FILTRATION RATE > 60.0 (>60); GLUCOSE, FASTING 117 MG/DL (70-100); HDL CHOLESTEROL 38 MG/DL (>40); LDL CHOLESTEROL 119 MG/DL (<100); NON-HDL-C 166 MG/DL; POTASSIUM SERUM 4.6 MEQ/L (3.5-5.1); SODIUM LEVEL 141 MEQ/L (136-145); THYROID STIMULATING HORMONE < 0.005 uIU/ML (0.358-3.740); TRIGLYCERIDES LEVEL 236 MG/DL (<150)
[2019-06-21 00:06] LABS: INSULIN FREE 58 uU/mL (.); INSULIN TOTAL2 58 uU/mL (.)
== END ==
LOC: M SMT 10:39
PROVIDERS: ATTEND Physician Assistant
DX: E88.81 Metabolic syndrome and other insulin resistance (principal)

== ENCOUNTER → 2019-06-27 | Outpatient (CLI) | payer OTHER ==
[~2019-06-27] MED LIST changes: -RANI-356 PO; +RANI-397 PO
--- NOTE | 2019-06-27 18:07 | REP ---
RIGHT UPPER QUADRANT ULTRASOUND: Real-time sonographic evaluation of the right upper quadrant performed. The gallbladder demonstrates no evidence of intraluminal sludge or calculi, wall thickening or pericholecystic fluid. There is no evidence of intrahepatic or extrahepatic biliary dilatation, common bile duct measuring 3 mm. Liver demonstrates somewhat hyperechoic echotexture suggesting some degree of fatty infiltration. No liver mass is seen. Pancreas could not be visualized due to overlying bowel gas. Right kidney demonstrates no hydronephrosis with normal size 12 cm in length. IMPRESSION: No gallstones or biliary dilatation. No free fluid. Findings suggesting fatty infiltration of the liver. Electronically Signed by Laurent uGadalupe MD 06/28/2019 04:34 P
== END ==
LOC: M RAD 16:27
PROVIDERS: ATTEND Family Medicine
DX: R10.11 Right upper quadrant pain (principal)

== ENCOUNTER → 2019-11-23 | Outpatient (CLI) | payer OTHER ==
[2019-11-23 13:21] LABS: FREE T4 0.77 NG/DL (0.76-1.46)
[2019-11-25 09:27] LABS: THYROGLOBULIN ANTIBODY 98.5 U/ML (<60.0); THYROID PEROXIDASE ANTIBODY 42.5 U/ML (<60.0); TOTAL 25(OH) VITAMIN D 31.8 NG/ML (30.0-100.0)
== END ==
LOC: M WUC 10:29
PROVIDERS: ATTEND Nurse Practitioner Pediatrics
DX: F43.10 Post-traumatic stress disorder, unspecified (principal); F41.0 Panic disorder [episodic paroxysmal anxiety]; E50.9 Vitamin A deficiency, unspecified; E55.9 Vitamin D deficiency, unspecified; E03.9 Hypothyroidism, unspecified

== ENCOUNTER → 2019-12-04 | Outpatient (CLI) | payer OTHER | LOC: M LAB 15:27 | PROVIDERS: ATTEND Advanced Practice Midwife | DX: N91.2 Amenorrhea, unspecified (principal) ==

== ENCOUNTER → 2019-12-31 | Outpatient (CLI) | payer OTHER | LOC: M LABSMTC 10:16 | PROVIDERS: ATTEND Family Medicine | DX: Z11.59 Encounter for screening for other viral diseases (principal); Z20.828 Contact with and (suspected) exposure to other viral communicable diseases ==